=== PATIENT | female | born 1965 | race Caucasian/White ===

== ENCOUNTER 2019-11-18 07:28 | Outpatient (REF) | payer BC, SELFPAY ==
[2019-11-19 09:07] LABS: Follicle Stimulating Hormone 8.7 mIU/mL
== END 2019-11-18 07:29 | disposition home or self-care (01) ==
LOC: HO.MANLDS 07:28
PROVIDERS: PCP Physician Assistant; Visit Provider Physician Assistant
DX: N95.1 Menopausal and female climacteric states (principal)
CPT/HCPCS: 83001

== ENCOUNTER 2020-08-05 15:52 | Outpatient (REF) | payer BC, SELFPAY ==
[2020-08-05 17:56] LABS: MANUAL DIFF FLAG NO
[2020-08-05 17:57] LABS: Basophils Percent Auto 0.5 % (0-2); Eosinophils Absolute Auto 0.2 X10*3/uL (0.0-0.4); Hematocrit 34.8 % (37-47); Hemoglobin 10.6 g/dl (12.0-16.0); Imm Gran Abs Auto 0.02 X10*3/uL (0.00-0.03); Imm Gran Pct Auto 0.3 % (0.0-0.4); Lymphocytes Absolute Auto 1.3 X10*3/uL (1.2-4.9); Lymphocytes Percent Auto 21.4 % (20-40); Mean Corpuscular HGB Conc 30.5 g/dl (31.0-35.0); Mean Corpuscular Hemoglobin 22.2 pg (27.0-33.0); Mean Corpuscular Volume 72.8 fL (80-98); Monocytes Absolute Auto 0.5 X10*3/uL (0.1-1.2); Monocytes Percent Auto 7.7 % (2-11); Neutrophils Percent Auto 67.1 % (45-73); Platelet Count 260 X10*3/uL (160-400); Red Blood Count 4.78 X10*6/uL (4.20-5.50); Red Cell Distribution Width 18.3 % (11.0-16.0)
[2020-08-05 18:33] LABS: Alanine Aminotransferase 12 U/L (0-31); Alkaline Phosphatase 84 U/L (39-117); Anion Gap 13 (12-20); Aspartate Amino Transferase 13 U/L (5-31); Bilirubin Total < 0.2 mg/dL (0.0-1.0); Blood Urea Nitrogen 16 mg/dL (9-16); Calcium 9.1 mg/dL (8.4-10.2); Carbon Dioxide 25 mmol/L (22-29); Chloride 107 mmol/L (96-108); Estimated Glomerular Filt Rate > 60; Glucose Random 101 mg/dL (60-115); Iron 28 mcg/dL (30-160); Percent Iron Saturation 6 % (15-50); Sodium 141 mmol/L (135-145); Total Iron Binding Capacity 453 mcg/dL (228-428); Total Protein 6.5 g/dL (6.5-8.0); Unsaturated Iron Binding 425 ug/dL
[2020-08-05 18:47] LABS: Ferritin 6 ng/mL (10-250); Free T4 (Free Thyroxine) 0.88 ng/dL (0.71-1.85); Thyroid Stimulating Hormone 0.88 uIU/mL (0.32-4.0); Vitamin D 25-OH Total 25.8 ng/mL (>30)
== END 2020-08-05 15:53 | disposition home or self-care (01) ==
LOC: HO.MANLDS 15:52
PROVIDERS: PCP Internal Medicine; Visit Provider Internal Medicine
DX: R53.83 Other fatigue (principal)
CPT/HCPCS: 36415; 80053; 82306; 82728; 83540; 84439; 84443; 85025

== ENCOUNTER 2021-01-17 15:05 | Outpatient (REF) | payer BC, SELFPAY ==
[2021-01-17 18:52] LABS: Iron 46 mcg/dL (30-160); Percent Iron Saturation 10 % (15-50); Total Iron Binding Capacity 469 mcg/dL (228-428); Unsaturated Iron Binding 423 ug/dL
[2021-01-17 19:17] LABS: Ferritin 13 ng/mL (10-250); Free T4 (Free Thyroxine) 0.95 ng/dL (0.71-1.85); Thyroid Stimulating Hormone 0.95 uIU/mL (0.32-4.0)
== END 2021-01-17 15:06 | disposition home or self-care (01) ==
LOC: HO.MANLDS 15:05
PROVIDERS: PCP Physician Assistant; Visit Provider Physician Assistant
DX: R53.83 Other fatigue (principal)
CPT/HCPCS: 36415; 82728; 83540; 84439; 84443

== ENCOUNTER 2021-08-16 11:14 | Outpatient (REF) | payer BC, SELFPAY ==
[2021-08-16 13:24] LABS: MANUAL DIFF FLAG NO
[2021-08-16 13:28] LABS: Basophils Percent Auto 0.6 % (0-2); Eosinophils Absolute Auto 0.2 X10*3/uL (0.0-0.4); Eosinophils Percent Auto 3.3 % (0-4); Hematocrit 38.4 % (37.0-47.0); Imm Gran Abs Auto 0.01 X10*3/uL (0.00-0.03); Imm Gran Pct Auto 0.2 % (0.0-0.4); Lymphocytes Absolute Auto 1.3 X10*3/uL (1.2-4.9); Lymphocytes Percent Auto 27.3 % (20-40); Mean Corpuscular HGB Conc 31.3 g/dl (31.0-35.0); Mean Corpuscular Hemoglobin 24.9 pg (27.0-33.0); Mean Corpuscular Volume 79.7 fL (80.0-98.0); Mean Platelet Volume 11.9 fL (9.4-12.3); Monocytes Absolute Auto 0.6 X10*3/uL (0.1-1.2); Monocytes Percent Auto 11.7 % (2-11); Neutrophils Absolute Auto 2.8 x10*3/uL (2.0-8.3); Neutrophils Percent Auto 56.9 % (45-73); Platelet Count 218 X10*3/uL (160-400); Red Blood Count 4.82 X10*6/uL (4.20-5.50); Red Cell Distribution Width 14.9 % (11.0-16.0); White Blood Count 4.9 X10*3/uL (4.8-10.8)
[2021-08-16 13:52] LABS: B Type Natriuretic Peptide 30 pg/mL (<100)
[2021-08-16 14:07] LABS: Erythrocyte Sedimentation Rate 5 MM/HR (0-20)
[2021-08-16 14:14] LABS: Estimated Average Glucose 108 mg/dL; Hemoglobin A1c % 5.4 %
[2021-08-16 14:28] LABS: Alanine Aminotransferase 14 U/L (0-31); Albumin Level 4.1 g/dL (3.5-5.0); Alkaline Phosphatase 70 U/L (39-117); Anion Gap 8 (12-20); Aspartate Amino Transferase 14 U/L (5-31); Bilirubin Total 0.3 mg/dL (0.0-1.0); Blood Urea Nitrogen 18 mg/dL (9-16); C Reactive Protein 0.86 mg/dL (< or = 0.50); Calcium 9.1 mg/dL (8.4-10.2); Carbon Dioxide 27 mmol/L (22-29); Chloride 106 mmol/L (96-108); Cholesterol 231 mg/dL; Estimated Glomerular Filt Rate > 60; Glucose Random 78 mg/dL (60-115); HDL Cholesterol 55 mg/dL; LDL Cholesterol Calculated 115 mg/dl; Potassium 4.4 mmol/L (3.3-5.1); Sodium 137 mmol/L (135-145); Total Protein 6.6 g/dL (6.5-8.0); Triglycerides 308 mg/dL
[2021-08-16 14:36] LABS: Free T4 (Free Thyroxine) 0.86 ng/dL (0.71-1.85); Thyroid Stimulating Hormone 1.09 uIU/mL (0.32-4.0); Vitamin D 25-OH Total 22.8 ng/mL (>30)
[2021-08-17 21:21] LABS: Lyme Abs Screen <0.90 index
== END 2021-08-16 11:15 | disposition home or self-care (01) ==
LOC: HO.MANLDS 11:14
PROVIDERS: Visit Provider Physician Assistant
DX: R53.83 Other fatigue (principal); R60.0 Localized edema; E78.2 Mixed hyperlipidemia
CPT/HCPCS: 36415; 80053; 80061; 82306; 83036; 83880; 84439; 84443; 85025; 85652; 86140; 86617; 86618

== ENCOUNTER → 2021-08-16 15:49 | Outpatient (REF) | payer BC, SELFPAY ==
--- NOTE | 2021-08-16 15:58 | CA_ITS ---
Transthoracic Echocardiogram Patient (Last, First, Middle): Lisha Roman, Gender: Female Date of : 1965 Age: 56 Procedure Date: 08/16/2021 Procedure Type: Transthoracic Echocardiogram Location: OP Height: 152.4 cm Weight: 122.47 kg BSA: 2.12 m2 Heart Rate: bpm BP: 128 / 80 mmHg Disaster Director: MAITE Referring MD: Razia GRIFFIN Symptoms: R60.0 EDEMA Study Quality: Adequate ECG Rhythm: Sinus Conclusions: - 1. Normal LV systolic function with impaired relaxation filling pattern 2. Normal cardiac valvular Doppler 3. Normal RV systolic pressure 4. No pericardial effusion Findings Left Ventricle Normal left ventricular size, thickness, and systolic function. The visually estimated ejection fraction is between 55-60%. Spectral Doppler is indicative of an impaired relaxation filling pattern. E/E prime ratio is between 8 and 15 consistent with indeterminate filling pressures. Right Ventricle Normal right ventricular cavity size and systolic function. Atria Both atria are normal in size. Interatrial shunt cannot be excluded. Aortic Valve Normal aortic valve structure and function. There is no aortic valve stenosis. There is no aortic valve regurgitation. Mitral Valve Normal mitral valve structure and function. There is trace mitral valve regurgitation. There is no mitral valve stenosis. Pulmonic Valve The pulmonic valve was not well visualized. Tricuspid Valve Likely normal tricuspid valve structure and function. There is trace tricuspid valve regurgitation. The right ventricular systolic pressure is normal. The right ventricular systolic pressure is 25 mmHg. Normal right atrial pressure. There is no evidence of pulmonary hypertension. Great Vessels All visible segments of the aorta are normal in size. The pulmonary artery was not well visualized. Venous The inferior vena cava is normal in size and collapses greater than 50% with inspiration. Pericardium/Pleural There is no evidence of pericardial effusion. Prior Study Comparison No prior study available for comparison. Measurements 2D Linear Measurements IVSd: 0.94 0.6-0.9/0.6-1.0 cm LVIDd: 4.57 3.9-5.3/4.2-5.9 cm LVIDd Index: 2.16 2.4-3.2/2.2-3.1 cm/m2 LVIDs: 3.15 2.0-3.6 cm LVPWd: 0.88 0.7-1.1 cm Ao Root: 3.50 2.1-3.5 cm LA Diam: 4.10 2.7-3.8/3.0-4.0 cm LAIDs Index: 1.93 1.5-2.3 cm/m2 LV Mass: 240.90 67-162/88-224 g LV Mass Index: 113.63 43-95/49-115 g/m2 LVOT Diam: 2.10 3.0+(-)1.3 cm 2D Systolic Function EF 4C: 58.70 >55% EF 2C: 54.50 >55% EF BiP: 56.40 >55% Mitral Valve MV Pk E: 0.81 MV PK A: 0.85 MV Decel Time: 180.00 E/A: 1.00 E'Lateral: 9.90 E'Medial: 7.62 E/E' Med: 10.70 E/E' Lat: 8.20 PHT: 53.00 MVA PHT: 4.15 Decel Bledsoe: 4.52 Aortic Valve AoV Pk Hung: 1.20 AoV Mn Hung: 0.78 AoV VTI: 0.30 AoV Pk Grad: 6.00 Aov Mn Grad: 3.00 IAN Cont.VTI: 2.71 LVOT LVOT Pk Hung: 0.94 LVOT Mn Hung: 0.60 LVOT VTI: 0.24 LVOT Pk Grad: 4.00 LVOT Mn Grad: 2.00 LVOT Diam: 2.10 LVOT Area: 3.46 Diastolic Function MV Pk E: 0.81 MV Pk A: 0.85 E/A: 1.00 E'Medial: 7.62 E/E' Med: 10.70 E' Laterial: 9.90 E/E' Lat: 8.20 Right Ventricle TAPSE (mm): 34.00 Tricuspid Valve TR Pk Hung: 2.36 TR Pk Grad: 22.00 RA Press: 3.00 RVSP: 25.00 Great Vessels Aorta Ao Root-2D: 3.50 2.0-3.7 cm Ao Asc: 3.20 2.1-3.4 cm Pulmonary Valve PV Pk Hung: 0.98 Peak PV Grad: 4.00 Updated in Other Vendor System with Status of Final Jermaine Brewer MD electronically signed on 08/17/2021 8:25:41 AM with status of Final
== END ==
LOC: HO.CARD 15:49
PROVIDERS: PCP Internal Medicine; Visit Provider Physician Assistant
DX: R60.0 Localized edema (principal)
CPT/HCPCS: 93306

== ENCOUNTER 2022-03-06 11:33 | Outpatient (REF) | payer BC, SELFPAY ==
[2022-03-06 15:34] LABS: Insulin 9 uU/mL (2-29)
[2022-03-07 07:03] LABS: C Peptide 2.72 ng/mL (0.80-3.85); DHEA Sulfate 63 mcg/dL (5-167); Lutenizing Hormone 14.1 mIU/mL; Prolactin 3.7 ng/mL
[2022-03-10 19:29] LABS: Progesterone <0.1 ng/mL
[2022-03-10 22:48] LABS: Estradiol Free 0.51 pg/mL; Estradiol, Ultrasensitive 31 pg/mL
[2022-03-11 13:14] LABS: Testosterone, Total 28 ng/dL (2-45)
== END 2022-03-06 11:34 | disposition home or self-care (01) ==
LOC: HO.MANLDS 11:33
PROVIDERS: Visit Provider Physician Assistant
DX: E88.81 Metabolic syndrome and other insulin resistance (principal); N95.1 Menopausal and female climacteric states
CPT/HCPCS: 36415; 82627; 82670; 82681; 83001; 83002; 83525; 84144; 84146; 84403; 84681

== ENCOUNTER 2022-10-03 11:59 | Outpatient (REF) | payer BC, SELFPAY ==
[2022-10-03 17:46] LABS: C Reactive Protein 0.88 mg/dL (< or = 0.50)
[2022-10-03 18:24] LABS: Erythrocyte Sedimentation Rate 2 MM/HR (0-20)
[2022-10-04 21:04] LABS: Lyme Abs Screen <0.90 index
[2022-10-08 12:34] LABS: Anti Nuclear Antibody Screen POSITIVE (NEGATIVE)
== END 2022-10-03 12:00 | disposition home or self-care (01) ==
LOC: HO.MANLDS 11:59
PROVIDERS: Visit Provider Physician Assistant
DX: M79.89 Other specified soft tissue disorders (principal)
CPT/HCPCS: 85652; 86038; 86039; 86140; 86617; 86618; 86666

== ENCOUNTER 2023-08-13 15:45 | Outpatient (REF) | payer BC, SELFPAY ==
[2023-08-13 18:11] LABS: MANUAL DIFF FLAG NO
[2023-08-13 18:30] LABS: Basophils Percent Auto 0.5 % (0-2); Eosinophils Absolute Auto 0.2 X10*3/uL (0.0-0.4); Eosinophils Percent Auto 2.8 % (0-4); Hematocrit 40.3 % (37.0-47.0); Hemoglobin 13.2 g/dl (12.0-16.0); Imm Gran Abs Auto 0.03 X10*3/uL (0.00-0.03); Imm Gran Pct Auto 0.5 % (0.0-0.4); Lymphocytes Absolute Auto 1.4 X10*3/uL (1.2-4.9); Lymphocytes Percent Auto 24.2 % (20-40); Mean Corpuscular HGB Conc 32.8 g/dl (31.0-35.0); Mean Corpuscular Hemoglobin 26.6 pg (27.0-33.0); Mean Corpuscular Volume 81.1 fL (80.0-98.0); Mean Platelet Volume 11.6 fL (9.4-12.3); Monocytes Absolute Auto 0.5 X10*3/uL (0.1-1.2); Monocytes Percent Auto 8.8 % (2-11); Neutrophils Absolute Auto 3.6 x10*3/uL (2.0-8.3); Neutrophils Percent Auto 63.2 % (45-73); Platelet Count 241 X10*3/uL (160-400); Red Blood Count 4.97 X10*6/uL (4.20-5.50); Red Cell Distribution Width 14.9 % (11.0-16.0); White Blood Count 5.7 X10*3/uL (4.8-10.8)
[2023-08-13 18:45] LABS: Free T4 (Free Thyroxine) 0.88 ng/dL (0.71-1.85); Insulin 39 uU/mL (2-29); Thyroid Stimulating Hormone 1.25 uIU/mL (0.32-4.0)
[2023-08-19 23:08] LABS: Testosterone, Total 28 ng/dL (2-45)
== END 2023-08-13 15:46 | disposition home or self-care (01) ==
LOC: HO.MANLDS 15:45
PROVIDERS: Visit Provider Physician Assistant
DX: E88.818 Other insulin resistance (principal); L68.0 Hirsutism
CPT/HCPCS: 36415; 83525; 84402; 84403; 84439; 84443; 85025

== ENCOUNTER 2023-09-23 12:04 | Outpatient (REF) | payer BC, SELFPAY ==
[2023-09-23 17:48] LABS: Lymphocytes Absolute Auto 1.1 X10*3/uL (1.2-4.9); MANUAL DIFF FLAG SCAN; Mean Corpuscular Volume 82.2 fL (80.0-98.0); Monocytes Absolute Auto 0.3 X10*3/uL (0.1-1.2); SCAN SMEAR FLAG 1
[2023-09-23 17:49] LABS: PLT ABN DIST 1
[2023-09-23 17:50] LABS: Basophils Percent Auto 0.9 % (0-2); Eosinophils Absolute Auto 0.1 X10*3/uL (0.0-0.4); Eosinophils Percent Auto 2.9 % (0-4); Imm Gran Abs Auto 0.02 X10*3/uL (0.00-0.03); Imm Gran Pct Auto 0.4 % (0.0-0.4); Lymphocytes Percent Auto 23.8 % (20-40); Mean Corpuscular HGB Conc 31.8 g/dl (31.0-35.0); Mean Corpuscular Hemoglobin 26.2 pg (27.0-33.0); Mean Platelet Volume 12.2 fL (9.4-12.3); Platelet Count 232 X10*3/uL (160-400); Red Blood Count 5.35 X10*6/uL (4.20-5.50); Red Cell Distribution Width 14.4 % (11.0-16.0); White Blood Count 4.5 X10*3/uL (4.8-10.8)
[2023-09-23 18:08] LABS: SLIDE REVIEW VERIFIED
[2023-09-23 18:22] LABS: Alanine Aminotransferase 18 U/L (0-31); Albumin Level 4.2 g/dL (3.5-5.0); Alkaline Phosphatase 86 U/L (39-117); Anion Gap 14 (12-20); Aspartate Amino Transferase 17 U/L (5-31); Bilirubin Total 0.3 mg/dL (0.0-1.0); Blood Urea Nitrogen 16 mg/dL (9-16); Calcium 9.2 mg/dL (8.4-10.2); Carbon Dioxide 23 mmol/L (22-29); Chloride 107 mmol/L (96-108); Estimated Glomerular Filt Rate > 60; Glucose Random 138 mg/dL (60-115); Sodium 140 mmol/L (135-145)
[2023-09-24 17:39] LABS: Lyme Abs Screen <0.90 index
[2023-09-28 10:08] LABS: A phagocytophilum IgG <1:64 (<1:64); A phagocytophilum IgM <1:20 (<1:20)
== END 2023-09-23 12:05 | disposition home or self-care (01) ==
LOC: HO.MANLDS 12:04
PROVIDERS: Visit Provider Physician Assistant
DX: M25.561 Pain in right knee (principal)
CPT/HCPCS: 36415; 80053; 84550; 85025; 86617; 86618; 86666

== ENCOUNTER 2024-04-17 10:34 | Outpatient (REF) | payer BC, SELFPAY ==
--- OUTSIDE RECORDS SUMMARY | 2024-04-17 11:56 | XMS_ITS | Continuity of Care Document ---
Author Organization [facility], [facility] Address [address] [place] [address] Assessment No assessment recorded. Plan of Treatment Reminders Order Date Submit Date Provider Last Modified By Organization Details Last Modified Time Details Appointments FOLLOW UP 15 2024 10:00A GABY DINERO Not available Not available Not available ANNUAL EXAM 2024 01:30P GABY DINERO Not available Not available Not available Lab CMP, serum or plasma 2024 025 [facility], [address] [place] [address], [id number], 04/17/2024 10:18:38 hemoglobi n A1c, QN, blood 2024 025 [facility], [address] [place] [address], [id number], 04/17/2024 10:18:38 CBC w/ auto diff 2024 025 [facility], [address] [place] [address], [id number], 04/17/2024 10:18:38 amylase + lipase, serum 2024 025 [facility], [address] [place] [address], [id number], 04/17/2024 10:18:38 lh + FSH, serum 2024 025 [facility], [address] [place] [address], [id number], 04/17/2024 10:18:38 progester one, serum 2024 025 [facility], [address] [place] [address], [id number], 04/17/2024 10:18:38 estradiol , serum 2024 025 [facility], [address] [place] [address], [id number], 04/17/2024 10:18:38 lipid panel, blood 2024 025 [facility], [address] [place] [address], [id number], 04/17/2024 10:18:38 TSH + free T4, serum 2024 025 [facility], [address] [place] [address], [id number], 04/17/2024 10:18:38 Referral None recorded. Procedures None recorded. Surgeries None recorded. Imaging None recorded. Medication Orders paroxetin e 10 mg tablet 2024 025 [facility] #[id number], [address] [place], [address], 04/17/2024 10:17:20 Patient TargetsNo targets recorded. Patient InstructionsNo instructions recorded. Reason for Referral None Reported. Problems Name Problem SNOMED Code Status Onset Date Resolution Date Notes Provider Name and Address Organization Details Recorded Time Migraine 71584733 Active 2017 Lakeshia Garcia NP, S [address] [place] [address], [address], [facility] 8 16:28:42 Asthma 966082133 Active 2019 GABY RIVERA [address] [place], [address], [facility] 0 16:07:22 COVID-19 607984967 Active 2019 0 Brenda Lopez [facility] 0 09:42:40 Pulmonary embolism 12151143 Active 2019 GABY RIVERA [address] [place], [address], [facility] 0 12:30:54 Deep venous thrombosi s of lower extremity 817508224 Active 2020 GABY RIVERA [address] [place], [address], [facility] 1 13:43:49 Edema of lower extremity 045015944 Active 2021 GABY RIVERA [address] [place] [address], [address], [facility] 2 11:05:34 Cough 28846534 Active 2021 GABY RIVERA [address] [place], [address], [facility] 2 11:05:41 Fatigue 87148782 Active 2021 GABY RIVERA [address] [place] [address], [address], [facility] 2 11:07:20 Hyperlipi demia 71041397 Active 2021 GABY RIVERA [address] [place] [address], [address], [facility] 2 11:08:59 Decreased renal function 45882252 Active 2021 GABY RIVERA [address] [place] [address], [address], [facility] 2 09:16:57 Obese 149653719 Active 2021 GABY RIVERA [address] [place] [address], [address], [facility] 2 16:38:38 Insulin resistanc e 537544856 Active 2022 GABY RIVERA [address] [place], [address], [facility] 3 14:32:13 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 GABY RIVERA [address] [place], [address], [facility] 3 14:32:31 Deep venous thrombosi s of lower extremity 504125602 Active 2022 GABY RIVERA [address] [place], [address], [facility] 3 09:45:00 Periphera l venous insuffici ency 30414230 Active 2022 GABY RIVERA [address] [place], [address], [facility] 3 09:45:47 Periphera l vascular disease 613968777 Active 2022 GABY RIVERA [address] [place], [address], [facility] 3 09:48:00 Swelling of left foot 641058985 Active 2022 GABY RIVERA [address] [place], [address], [facility] 3 15:57:38 Exacerbat ion of intermitt ent asthma 541537234 Active 2022 GABY RIVERA [address] [place], [address], [facility] 3 13:58:25 Insomnia 480382669 Active 2022 GABY RIVERA [address] [place], [address], [facility] 3 13:59:25 Anxiety 75171167 Active 2022 GABY RIVERA [address] [place] [address], [address], [facility] 3 12:14:37 Morbid obesity 828951191 Active 2022 GABY RIVERA [address] [place] [address], [address], [facility] 3 12:16:13 Female hirsutism 71737297 Active 2023 GABY RIVERA [address] [place] [address], [address], [facility] 4 16:44:21 Achilles tendiniti s 46228205 Active 2023 GABY RIVERA [address] [place] [address], [address], [facility] 4 17:02:00 Pain of right knee joint 422900043777 100 Active 2023 GABY RIVERA [address] [place] [address], [address], [facility] 4 11:48:13 Obesity 506613828 Active 2023 GABY RIVERA [address] [place] [address], [address], [facility] 4 11:56:54 Acute pain of joint of knee 633961705958 104 Active 2023 GABY RIVERA [address] [place] [address], [address], [facility] 4 09:22:24 Acute tear of medial meniscus of right knee 897984904335 35997 Active 2023 GABY RIVERA [address] [place] [address], [address], [facility] 4 15:15:44 Acute bronchiti s 10416290 Active 2023 GABY RIVERA [address] [place] [address], [address], [facility] 4 09:35:10 Impaired fasting glycemia 613824927 Active 2024 GABY RIVERA [address] [place], [address], [facility] 5 10:06:08 Increased thirst 053336549 Active 2024 GABY RIVERA [address] [place], [address], [facility] 5 10:06:30 Menopause Active 2024 GABY RIVERA [address] [place], [address], [facility] 5 10:09:07 Problem Notes None recorded. Medical Equipment None Reported. Allergies Allergen ID Allergen Name Allergen Category Reaction Reaction Severity Criticality Documentation Date Start Date Code Code System Note Provider Name and Address Organization Details Recorded Time 2401 morphine medicatio n itching mild Not available 11/20/2017 7052 RxNorm Lakeshia Garcia NP, S [address] [place], [address], [facility] 8 16:16:06 Medications Name Sig Start Date Stop Date Status Note LastModified by Organization Details LastModified Time Prescripti on - Prior Authorizat ion Request active Not Available Not Available Not Available cyclobenza nelda 10 mg tablet Take 1 tablet 3 times a day by oral route for 15 days. 08/05 completed Not Available Not Available Not Available amoxicilli n 500 mg capsule Take 1 capsule every 8 hours by oral route. 10/07 completed Not Available Not Available Not Available furosemide 40 mg tablet TAKE 1 TABLET BY MOUTH EVERY DAY active Not Available Not Available No t Available prednisone 10 mg tablet TAKE 5 TABLETS BY MOUTH X 2 DAYS, 4 TABS X 2 DAYS, 3 TABS X 2 DAYS, 2 TABS X 2 DAYS, 1 TAB X 2 DAYS 04/17 completed Not Available Not Available Not Available paroxetine 10 mg tablet Take 1 tablet every day by oral route as directed for 30 days. 2024 active Not Available Not Available Not Avai lable azithromyc in 250 mg tablet TAKE 2 TABLETS BY MOUTH TODAY, THEN TAKE 1 TABLET DAILY FOR 4 DAYS DIRECTED 04/17 completed Not Available Not Available Not Available benzonatat e 200 mg capsule TAKE 1 CAPSULE BY MOUTH THREE TIMES A DAY NEEDED FOR 14 DAYS 04/17 completed Not Available Not Available Not Available sumatripta n 100 mg tablet TK 1 T PO 1 TIME PRN active Not Available Not Available No t Available meloxicam 15 mg tablet TAKE 1 TABLET EVERY DAY BY ORAL ROUTE WITH MEAL(S) FOR 30 DAYS. active Not Available Not Available No t Available ondansetro n HCl 4 mg tablet 08/05 completed Not Available Not Available Not Available phentermin e 15 mg capsule TAKE 1 CAPSULE BY MOUTH EVERY DAY 08/06 completed Not Available Not Available Not Available sumatripta n 50 mg tablet Take 1 tablet every day by oral route as needed. 10/20 completed Not Available Not Available Not Available ciprofloxa vasile 500 mg tablet TAKE 1 TABLET BY MOUTH EVERY 12 HOURS FOR 7 DAYS 01/16 completed Not Available Not Available Not Available tramadol 50 mg tablet TAKE 1 TABLET BY MOUTH EVERY 6 HOURS NEEDED FOR 7 DAYS active Not Available Not Available No t Available meclizine 25 mg tablet prn for dizzines s/migrai ne 2019 active Not Available Not Available Not Avai lable dexamethas one 4 mg tablet TK 1 AND 1/2 TS PO D FOR 5 DAYS 08/05 completed Not Available Not Available Not Available triamteren e 37.5 mg-hydroch lorothiazi de 25 mg tablet TAKE 1 TABLET BY MOUTH EVERY DAY 08/30 completed Not Available Not Available Not Available diclofenac sodium 75 mg tablet,del ayed release TAKE 1 TABLET BY MOUTH TWICE A DAY WITH MEALS FOR 30 DAYS 01/16 completed Not Available Not Available Not Available codeine 10 mg-guaifen esin 100 mg/5 mL oral liquid TAKE 10 MILLILIT ERS BY MOUTH EVERY 4 HOURS NEEDED 04/17 completed Not Available Not Available Not Available furosemide 20 mg tablet TAKE 1 TABLET BY MOUTH EVERY DAY 05/16 completed Not Available Not Available Not Available levofloxac in 500 mg tablet TAKE 1 TABLET BY MOUTH EVERY 24 HOURS FOR 7 DAYS AT [facility] 05/16 completed Not Available Not Available Not Available methylpred nisolone 4 mg tablets in a dose pack TAKE 6 TABLETS ON DAY 1 DIRECTED ON PACKAGE AND DECREASE BY 1 TAB EACH DAY FOR A TOTAL OF 6 DAYS 04/17 completed Not Available Not Available Not Available hydrocodon e 10 mg-chlorph eniramine 8 mg/5 mL oral susp extend.rel 12hr TAKE 5 ML BY MOUTH EVERY 12 HOURS FOR 7 DAYS 01/16 completed Not Available Not Available Not Available albuterol sulfate HFA 90 mcg/actuat ion aerosol inhaler TAKE 2 PUFFS BY MOUTH EVERY 4 HOURS NEEDED 2023 active Not Available Not Available Not Avai lable Tri-Tiffanie 0.01 %-4 %-0.05 % topical cream Apply thin film to affected areas of face at nighttim e for up to 12 weeks at a time 05/16 completed Not Available Not Available Not Available bupropion HCl XL 150 mg 24 hr tablet, extended release TAKE 1 TABLET BY MOUTH EVERY DAY FOR 30 DAYS active Not Available Not Available No t Available Vitamin D3 2000 units active Not Available Not Available No t Available peg 3350-elect rolytes 236 gram-22.74 gram-6.74 gram-5.86 gram solution MIX AND USE DIRECTED FOR COLONOSC OPY 02/21 completed Not Available Not Available Not Available Xarelto 15 mg tablet 08/05 completed for 21 days BID, then switch over to 20 mg qd Not Available Not Available Not Available Xarelto 20 mg tablet Take 1 tablet every day by oral route for 30 days. 01/17 completed Not Available Not Available Not Available Breo Ellipta 100 mcg-25 mcg/dose powder for inhalation 01/16 completed Not Available Not Available Not Available Fluzone Quad (PF) 60 mcg (15 mcg x 4)/0.5 mL IM syringe ADM 0.5ML IM UTD 08/05 completed Not Available Not Available Not Available Wegovy 0.25 mg/0.5 mL subcutaneo us pen injector INJECT 0.25 MG SUBCUTAN EOUSLY WEEKLY DIRECTED active Not Available Not Available No t Available Vitals Date Recorded Body height Body mass index (BMI) Body weight Heart rate Oxygen saturation Oxygen saturation in Arterial blood by Pulse oximetry Systolic blood pressure Diastolic blood pressure Provider Name and Address Organization Details Last Updated DateTime 5 152.4 cm 56.1 kg/m2 539785. 01 g 78 /min 96 % 96 % 118 mm[Hg] 70 mm[Hg] Lara Padgettmond [facility] 5 10:02:02 Social History Question Answer Notes LastModified by [employer] Details LastModified Time Tobacco Smoking Status Never Smoker Not Available [facility] 12/15/2019 03:36:24 What Is Your Level Of Alcohol Consumption? Occasional [id number] Information not available 12/15/2019 What Is Your Level Of Caffeine Consumption? Occasional 1 Cup Coffee Per Day [id number] Information not available 12/15/2019 What Was The Date Of Your Most Recent Tobacco Screening? 04/17/2024 [email or web address] Information not available 04/17/2024 Do You Or Have You Ever Used Any Other Forms Of Tobacco Or Nicotine? No [email or web address] Information not available 01/16/2023 Sex: Unknown Functional Status Question Answer Note LastModified by [employer] Details LastModified Time What is your exercise level? Occasional [id number] Information not available 12/15/2019 Mental Status None recorded. Family History Nothing Reported. Medical History No medical history recorded. Gynecological History Statement/Question Response Date of LMP 10/05/2018 Obstetrics History GPAL:G 0 P 0 0 0 0 Immunizations Vaccine Type Date Status Note Provider Nam e and Address Organization Details Recorded Time COVID-19, mRNA, LNP-S, PF, 30 mcg/0.3 mL dose 1 completed Leah marquez [facility] 08/02/2020 09:48:05 COVID-19, mRNA, LNP-S, PF, 30 mcg/0.3 mL dose 1 completed Leah marquez [facility] 08/02/2020 09:48:10 pneumococcal polysaccharide PPV23 0 completed Leah marquez [facility] 08/02/2020 09:48:23 Past Encounters Encounter ID Performer Location Encounter Start Date Encounter Closed Date Diagnosis/Indication Diagnosis SNOMED-CT Code Diagnosis ICD10 Code Diagnosis Note [id number] GABY RIVERA [facility] [address] [facility],[place] [address] 04/17/2024 09:53:13 04/17/2024 10:28:16 Impaired fasting glycemia 387999437 R73.01 set up with lab work Increased thirst 2656799 03 R63.1 set up with lab work Thyroid di sorder screening 361300348 Z13.29 would like it screened prior to starting injections Menopause 669850831 N95. 1 alt medication for menopausal symptoms Screening for cardiovascular system disease 622923338 Z13.6 needs recheck Morbid obesity 675175030 E66.01 wants to start her wegovy Deep venou s thrombosis of lower extremity 891527418 I82.412 resolved, caution with possible HRT Health Concerns Section Related Observation LastModified by Organization Detai ls LastModified Time None Recorded Concern Status LastModified by Organization Details LastModified Time None Recorded Payers Encounter Date Sequence Insurance Name Policy Number Policy Jean Covered Member ID Jean Member ID Guarantor Name 04/17/2024 1 [employer] [employer] [place] [id number] Lisha Roman [id number] Lisha Roman Notes Date Note Type Note Provider Name a nd Address Organization Details Recorded Time 5 text/html f/u medication check IFG: the patient needs recheck lab work before starting on the wegovy in case she does have diabetes, will switch to alt with the ozempic increased thirst: does have that concern, the pt has a sig family hx as well for the diabetes wants to have her pancreas screened prior to starting screen her thyroid levels as well prior to starting the wegovy screening cardio disease: needs recheck of her lipid DVT: trial paxil instead of HRT given risk involved with estrogen therapy in someone who has a clotting problem just baseline labs prior to new meds to avoid any complications, contraindications GABY RIVERA [address] [facility], [place], [address], [facility] 04/17/2024 10:28:15 OBGyn Episode No OBEpisode recorded.
--- OUTSIDE RECORDS SUMMARY | 2024-04-17 11:56 | XMS_ITS | Data Portability ---
Author Organization [facility] Service Address [address] [place] [address] Assessment Encounter Date Assessment Date Assessment LastModified by Organization Details LastModified Time 01/01/2023 01/01/2023 Patient agreed and verbally consents to this audio and video Telehealth appt via a secure platform [email or web address] Not available 01/01/2023 13:57:52 Plan of Treatment Reminders Order Date Submit Date Provider Last Modified By Organization Details Last Modified Time Details Appointments FOLLOW UP 15 2024 10:00A M GABY RIVERA Not available Not available Not available ANNUAL EXAM 2024 01:30P M GABY RIVERA Not available Not available Not available Lab CMP, serum or plasma 2024 025 [facility], [address] [place] [address], [id number], 04/17/2024 10:18:38 hemoglobi n A1c, QN, blood 2024 025 [facility], [address] [place] [address], 537[address], 04/17/2024 10:18:38 CBC w/ auto diff 2024 025 [facility], [address] [place] [address], 14[address], 04/17/2024 10:18:38 amylase + lipase, serum 2024 025 [facility], [address] [place] [address], [address], 04/17/2024 10:18:38 lh + FSH, serum 2024 025 [facility], [address] [place] [address], 339[address], 04/17/2024 10:18:38 progester one, serum 2024 025 [facility], [address] [place] [address], 159[address], 04/17/2024 10:18:38 estradiol , serum 2024 025 [facility], [address] [place] [address], [address], 04/17/2024 10:18:38 lipid panel, blood 2024 025 [facility], [address] [place] [address], [address], 04/17/2024 10:18:38 TSH + free T4, serum 2024 025 [facility], [address] [place] [address], [address], 04/17/2024 10:18:38 lyme disease igg+igm, serum, reflex western blot 2023 024 [facility], [address] [place] [address], [address], 09/25/2023 11:24:33 anaplasma phagocyto philum (hga/hge) igg+igm Ab, serum 2023 024 [facility], [address] [place] [address], [id number], 09/30/2023 11:28:20 uric acid, serum or plasma 2023 [facility], [address] [place] [address], 02640, 09/23/2023 11:57:53 CMP, serum or plasma 2023 [facility], [address] [place] [address], 18[address], 09/24/2023 11:33:18 CBC w/ auto diff 2023 [facility], [address] [place] [address], 62[address], 09/24/2023 11:33:18 testoster one, free + total, serum 2023 [facility], [address] [place] [address], 045[address], 08/20/2023 11:34:26 dhea-sulf ate, serum 2023 [facility], [address] [place] [address], 96938, 08/07/2023 16:47:43 lh + FSH, serum 2023 024 [facility], [address] [place] [address], 22834, 08/07/2023 16:47:43 prolactin , serum 2023 024 [facility], [address] [place] [address], 08867, 08/07/2023 16:47:43 estradiol , serum 2023 024 [facility], [address] [place] [address], 35582, 08/07/2023 16:47:43 TSH + free T4, serum 2023 024 [facility], [address] [place] [address], 63284, 08/14/2023 11:28:48 thyroid peroxidas e (tpo) Ab, serum 2023 024 [facility], [address] [place] [address], 57764, 08/07/2023 16:47:43 insulin, serum 2023 024 [facility], [address] [place] [address], 02986, 08/07/2023 16:47:44 CMP, serum or plasma 2023 024 [facility], [address] [place] [address], 15153, 08/07/2023 16:47:43 CBC w/ auto diff 2023 024 [facility], [address] [place] [address], 99640, 08/07/2023 16:47:44 lipid panel, serum 2023 024 [facility], [address] [place] [address], 10476, 08/07/2023 16:47:43 CMP, serum or plasma 2022 023 [facility], [address] [place] [address], 92135, 01/16/2023 12:23:17 CBC w/ auto diff 2022 023 [facility], [address] [place] [address], 33764, 01/16/2023 12:23:17 lipid panel, blood 2022 023 [facility], [address] [place] [address], 02196, 01/16/2023 12:23:17 TSH + free T4, serum 2022 023 [facility], [address] [place] [address], 59669, 01/16/2023 12:23:17 hemoglobi n A1c, QN, blood 2022 023 [facility], [address] [place] [address], 81450, 01/16/2023 12:23:17 vitamin D, 25-hydrox y, total, serum 2022 023 [facility], [address] [place] [address], 46[address], 01/16/2023 12:23:17 Referral None recorded. Procedures None recorded. Surgeries None recorded. Imaging XR, knee, 3 view 2023 024 [facility], [address] [place], [address], 09/24/2023 16:18:20 Medication Orders paroxetin e 10 mg tablet 2024 025 [facility]armacy #2024, [address] [place], [address], 04/17/2024 10:17:20 meloxicam 15 mg tablet 2023 024 [facility]acy #2024, [address] [place], [address], 08/07/2023 17:02:21 Medrol (Macho) 4 mg tablets in a dose pack 2023 024 [facility]/Pharmacy #5, [address] [place], [address], 04/17/2024 10:03:37 codeine 10 mg-guaife nesin 100 mg/5 mL oral liquid 2023 024 [facility] [address] [place] [address], [address], 04/17/2024 10:04:38 bupropion HCl XL 150 mg 24 hr tablet, extended release 2023 024 [facility] [address] [place] [address], [address], 04/17/2024 10:09:27 phentermi ne 15 mg capsule 2022 023 [facility] [address] [place] [address], [address], 08/07/2023 16:48:05 albuterol sulfate HFA 90 mcg/actua tion aerosol inhaler 2022 023 [facility] [address] [place] [address], [address], 01/01/2023 13:58:05 ciproflox acin 500 mg tablet 2022 023 [address] [facility] [address] [address] [address] [place] [address], [address], 01/16/2023 11:29:54 hydrocodo ne 10 mg-chlorp heniramin e 8 mg/5 mL oral susp extend.re l 12hr 2022 023 [address] [facility] [address] [address] [address] [place] [address], [address], 01/16/2023 11:29:47 Patient TargetsNo targets recorded. Patient InstructionsNo instructions recorded. Reason for Referral None Reported. Results Created Date Observation Date Name Description Value Unit Range Abnormal Flag Note LastModifiedBy Organization Detail LastModifiedTime 09/24/19 24 09/23/2023 XR, knee, 3 view No observ ation record ed. [facility] [address] [facility], [place], [address], 09/25/2023 10:13:53 09/30/19 24 09/23/2023 XR, knee, 3 view No observ ation record ed. [facility] [address] [facility] [address], [place], [address], 09/30/2023 10:40:27 10/22/19 24 10/21/2023 MRI, knee, w/o contr ast No observ ation record ed. [facility] [address] [facility] [address], [place], [address], 10/22/2023 15:14:41 Result Notes None recorded. Problems Name Problem SNOMED Code Status Onset Date Resolution Date Notes Provider Name and Address Organization Details Recorded Time Migraine 98693032 Active 2017 Lakeshia Garcia NP, S [address] [place] [address], [address], [facility] 8 16:28:42 Asthma 206642565 Active 2019 GABY RIVERA [address] [place] [address], [address], [facility] 0 16:07:22 COVID-19 127025672 Active 2019 0 [facility] 09:42:40 Pulmonary embolism 89706143 Active 2019 GABY RIVERA [address] [place] [address], [address], [facility] 0 12:30:54 Deep venous thrombosi s of lower extremity 635211384 Active 2020 GABY RIVERA [address] [place] [address], [address], [facility] 1 13:43:49 Edema of lower extremity 569795515 Active 2021 GABY RIVERA [address] [place] [address], [address], [facility] 2 11:05:34 Cough 98699584 Active 2021 GABY RIVERA [address] [place] [address], [address], [facility] 2 11:05:41 Fatigue 90120452 Active 2021 GABY RIVERA [address] [place] [address], [address], [facility] 2 11:07:20 Hyperlipi demia 02379006 Active 2021 GABY RIVERA [address] [place] [address], [address], [facility] 2 11:08:59 Decreased renal function 79289467 Active 2021 GABY RIVERA [address] [place] [address], [address], [facility] 2 09:16:57 Obese 194965709 Active 2021 GABY RIVERA [address] [place] [address], [address], [facility] 2 16:38:38 Insulin resistanc e 868431420 Active 2022 GABY RIVERA [address] [place] [address], [address], [facility] 3 14:32:13 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 2022 GABY RIVERA [address] [place] [address], [address], [facility] 3 14:32:31 Deep venous thrombosi s of lower extremity 788902139 Active 2022 GABY RIVERA [address] [place] [address], [address], [facility] 3 09:45:00 Periphera l venous insuffici ency 74377291 Active 2022 GABY RIVERA [address] [place] [address], [address], [facility] 3 09:45:47 Periphera l vascular disease 895565026 Active 2022 GABY RIVERA [address] [place], [address], [facility] 3 09:48:00 Swelling of left foot 270833315 Active 2022 GABY RIVERA [address] [place] [address], [address], [facility] 3 15:57:38 Exacerbat ion of intermitt ent asthma 152515361 Active 2022 GABY RIVERA [address] [place] [address], [address], [facility] 3 13:58:25 Insomnia 208153575 Active 2022 GABY RIVERA [address] [place] [address], [address], [facility] 3 13:59:25 Anxiety 58763960 Active 2022 GABY RIVERA [address] [place] [address], [address], [facility] 3 12:14:37 Morbid obesity 056454021 Active 2022 GABY RIVERA [address] [place] [address], [address], [facility] 3 12:16:13 Female hirsutism 90504984 Active 2023 GABY RIVERA [address] [place] [address], [address], [facility] 4 16:44:21 Achilles tendiniti s 57222479 Active 2023 GABY RIVERA [address] [place] [address], [address], [facility] 4 17:02:00 Pain of right knee joint 501182659349 100 Active 2023 GABY RIVERA [address] [place], [address], [facility] 4 11:48:13 Obesity 173186702 Active 2023 GABY RIVERA [address] [place], [address], [facility] 4 11:56:54 Acute pain of joint of knee 659903439503 104 Active 2023 GABY RIVERA [address] [place] [address], [address], [facility] 4 09:22:24 Acute tear of medial meniscus of right knee 016569593349 92669 Active 2023 GABY RIVERA [address] [place] [address], [address], [facility] 4 15:15:44 Acute bronchiti s 12563639 Active 2023 GABY RIVERA [address] [place] [address], [address], [facility] 4 09:35:10 Impaired fasting glycemia 291499717 Active 2024 GABY RIVERA [address] [place] [address], [address], [facility] 5 10:06:08 Increased thirst 931723369 Active 2024 GABY RIVERA [address] [place] [address], [address], [facility] 5 10:06:30 Menopause Active 2024 GABY RIVERA [address] [place] [address], [address], [facility] 5 10:09:07 Problem Notes None recorded. Procedures Surgical History None recorded. Imaging Results Imaging Date Name Status LastModified by Organiz ation Details LastModified Time 09/23/2023 XR, knee, 3 view completed rtba [facility] [address] [facility], [place], [address], 09/25/2023 10:13:53 09/23/2023 XR, knee, 3 [facility] [address] [facility] [address], [place], [address], 09/30/2023 10:40:27 10/21/2023 MRI, knee, w/o contrast completed [email or web address] [facility] [address], [place], [address], 10/22/2023 15:14:41 Procedure Notes None recorded. Medical Equipment None Reported. Allergies Allergen ID Allergen Name Allergen Category Reaction Reaction Severity Criticality Documentation Date Start Date Code Code System Note Provider Name and Address Organization Details Recorded Time 2401 morphine medicatio n itching mild Not available 11/20/2017 7052 RxNorm Lakeshia Garcia, FLOYD, S [address] [place], [address], [facility] 8 16:16:06 Medications Name Sig Start Date [...] Not Available Not Available Not Available ciprofloxa vsaile 500 mg tablet TAKE 1 TABLET BY [...] EVERY 24 HOURS FOR 7 DAYS AT [facility] 05/16 completed Not Available Not Available [...] and Address Organization Details Last Updated DateTime 3 152.4 cm 54.7 kg/m2 924777. 86 g 78 /min 96 % 96 % 142 mm[Hg] 81 mm[Hg] Alea Massey [facility] 3 11:32:18 Date Recorded Body height Body mass index (BMI) Body weight Heart rate Oxygen saturation Oxygen saturation in Arterial blood by Pulse oximetry Systolic blood pressure Diastolic blood pressure Provider Name and Address Organization Details Last Updated DateTime 4 152.4 cm 54.7 kg/m2 649125. 86 g 74 /min 97 % 97 % 110 mm[Hg] 80 mm[Hg] Lara Moreland [facility] 4 16:20:14 Date Recorded Body height Body mass index (BMI) Body weight Heart rate Oxygen saturation Oxygen saturation in Arterial blood by Pulse oximetry Systolic blood pressure Diastolic blood pressure Provider Name and Address Organization Details Last Updated DateTime 4 152.4 cm 56.4 kg/m2 478354. 48 g 79 /min 98 % 98 % 122 mm[Hg] 84 mm[Hg] Farzana Mendez [facility] 4 11:40:50 Date Recorded Body height Body mass index (BMI) Body weight Heart rate Oxygen saturation Oxygen saturation in Arterial blood by Pulse oximetry Systolic blood pressure Diastolic blood pressure Provider Name and Address Organization Details Last Updated DateTime 5 152.4 cm 56.1 kg/m2 675392. 01 g 78 /min 96 % 96 % 118 mm[Hg] 70 mm[Hg] Lara Moreland [facility] 5 10:02:02 Social History Question Answer Notes LastModified by Organizat ion Details LastModified Time Tobacco Smoking Status Never Smoker Not Available [employer] 12/15/2019 03:36:24 What Is Your Level Of Alcohol Consumption? Occasional [id number] Information not available 12/15/2019 What Is Your Level Of Caffeine Consumption? Occasional 1 Cup Coffee Per Day [id number] Information not available 12/15/2019 What Was The Date Of Your Most Recent Tobacco Screening? 04/17/2024 [email or web address] Information not available 04/17/2024 Do You Or Have You Ever Used Any Other Forms Of Tobacco Or Nicotine? No [email or web address] Information not available 01/16/2023 Sex: Unknown Functional Status Question Answer Note LastModified by Organizat ion Details LastModified Time What is your exercise level? Occasional [id number] Information not available 12/15/2019 Mental Status None recorded. Family History Nothing Reported. Medical History No medical history recorded. Gynecological History Statement/Question Response Date of LMP 10/05/2018 Obstetrics History GPAL:G 0 P 0 0 0 0 Immunizations Vaccine Type Date Status Note Provider Nam e and Address Organization Details Recorded Time COVID-19, mRNA, LNP-S, PF, 30 mcg/0.3 mL dose 1 completed Leah marquez [facility] 08/02/2020 09:48:05 COVID-19, mRNA, LNP-S, PF, 30 mcg/0.3 mL dose 1 completed Leah Bowens [facility] 08/02/2020 09:48:10 pneumococcal polysaccharide PPV23 0 completed Leah Bowens [facility] 08/02/2020 09:48:23 Past Encounters Encounter ID Performer Location Encounter Start Date Encounter Closed Date Diagnosis/Indication Diagnosis SNOMED-CT Code Diagnosis ICD10 Code Diagnosis Note [id number] Lakeshia Garcia NP, S [facility] [address] [facility] [address] 11/20/2017 16:01:46 11/20/2017 16:38:37 Acute bronchitis 91187674 J20.9 Anxiety 09858850 F41.9 Discussed Insomnia 201031535 G47.0 0 tried melatonin, try benadryl Migraine 95033953 G43.90 9 refill imitrex [id number] Frank Orellana DO [facility] [address] [facility],[place] [address] 10/07/2018 11:55:01 10/07/2018 12:45:21 Adult health examination 838895388 Z00.00 [id number] GABY RIVERA [facility] [address] [facility], [place] [address] 05/25/2019 11:46:31 05/25/2019 12:46:18 Acute bronchitis 48745075 J20.9 based on patient's symptoms, possibly an acute bronchitis vs a walking pna in the setting of an asthma exacerbati on more inclined to believe a bronchitis will treat the patient empiricall y given the fact I could not see her in office to assess her lungs the patient has also been using her inhaler TID which is a drastic increase from when she was rarely, if at all using it if the patient starts having worsening symptoms including fever, increased sob and cough she is instructed to call us the patient agrees and understand s Asthma 311933177 J45.90 9 as above Acute exac erbation of asthma 401204463 J45.901 as above [id number] GABY RIVERA [facility] [address] [facility],[place] [address] 10/21/2019 15:39:11 10/21/2019 16:22:20 Migraine 47060072 G43.909 may have migrainous vertigo based on symptoms Adult [facility] th examination 918700111 Z00.00 BP is good will fu on FSH level patient may be going through menopause, or perimenopa usal Menopausal flushing 1984 29672 N95.1 will check FSH [id number] GABY RIVERA [facility] [address] [facility],[place] [address] 12/29/2019 16:03:10 12/29/2019 16:23:02 Acute exacerbation of asthma 809885716 J45.901 increase of her asthma, cough, wheezing with symptoms has been COVID tested, waiting on results until they are back will treat like asthma exacerbati on/bronchi tis Cough 14821240 R05 will give something for cough, which keeps her up at night Acute bronchitis 2864906 2 J20.9 based on patient's symptoms, possibly an acute bronchitis vs a walking pna in the setting of an asthma exacerbati on more inclined to believe a bronchitis will treat the patient empiricall y given the fact I could not see her in office to assess her lungs the patient has also been using her inhaler TID which is a drastic increase from when she was rarely, if at all using it if the patient starts having worsening symptoms including fever, increased sob and cough she is instructed to call us the patient agrees and understand s waiting on COVID results [id number] GABY RIVERA [facility] [address] [facility],[place] [address] 01/18/2020 08:58:38 01/18/2020 16:48:08 COVID-19 526404815 U07.1 positive at recheck on admittance in hospital the patient reports she was not rechecked on d/c not given any instructio n about quarantini ng when d/c would have her avoid going out until symptoms resolve Cramp in lower limb 4499 47758 R25.2 r/o DVT given COVID diagnosis Cough 77062935 R05 dry cough, uses inhaler as needed Dyspnea 604858446 R06.00 when active, not at rest [id number] GABY RIVERA [facility] [address] [facility], [address] [place] [address] 01/20/2020 14:33:46 01/22/2020 11:50:37 COVID-19 120632664 U07.1 sent to ER Deep venou s thrombosis of lower extremity 812782222 I82.409 sent to ER for r/o PE Pneumonia 684167313 J18. 9 pna on XR [id number] GABY RIVERA [facility] [address] [facility], [address] [employer] [place] [address] 02/02/2020 08:11:13 02/02/2020 16:03:42 Pulmonary embolism 85965716 I26.99 bilateral PE on appropriat e medication s will fu in a month Deep venou s thrombosis of lower extremity 657791932 I82.409 on xarelto, instructed how to take and how long for will continue on for the next 6 mo at 20 mg qd COVID-19 057130221 U07.1 stable Pneumonia 713978763 J18. 9 resolved [id number] GABY RIVERA [facility] [address] [facility], [place] [address] 03/04/2020 08:42:27 03/04/2020 11:56:52 Deep venous thrombosis of lower extremity 448703113 I82.409 on xarelto, instructed how to take and how long for will continue on for the next 6 mo, at which point will fu to see how she is doing and rescan her to see if the clot has fully dissolved patient agrees to the plan Pulmonary embolism 77756 003 I26.99 stable on current medication , symptoms have resolved and patient is feeling signficant ly better no interventi on needed at this time Asthma 807416480 J45.90 9 stable as per patient, no acute exacerbati ons no interventi ons needed at this time COVID-19 135458549 U07.1 will get retested today and see if still technical ly positive, but she has no symptoms and is not been exposed since so has a resolved infection at this point in time [id number] Frank Orellana, [facility] [address] [facility],[address] 7 08/05/2020 14:54:20 08/05/2020 15:41:36 Sleep apnea 52562307 G47.30 Fatigue 89609472 R53.83 Pulmonary embolism 58239 003 I26.99 xarelto but is coming up to the endbut we will be diligent in watching for any signs of DVT [id number] GABY RIVERA [facility] [address] [facility], [place] [address] 08/30/2020 13:58:26 08/30/2020 15:03:36 Edema of lower extremity 181589980 R60.0 will fu with echo and lasix dose due to PE Pulmonary embolism 82832 003 I26.99 michawill check US echo from baseline back in January to see if there are any changes [id number] GABY RIVERA [facility] [address] [facility] [address] 01/17/2021 14:09:50 01/17/2021 15:00:39 Active or passive immunization 174472231 Z23 stable Adult heal th examination 455823696 Z00.00 BP is excellent todaydown 20 pounds Fatigue 16894199 R53.83 will recheck iron panel and TSH for fatigue Screening for malignant neoplasm of colon 472653021 Z12.11 [place]oscop y [id number] [facility] [address] [facility],[place] [address] 08/16/2021 10:21:00 08/16/2021 11:23:47 Cough 55379732 R05.1 dry cough, hx of PElast echo was through cardio sept Edema of l ower extremity 591211925 R60.0 will fu with echo and lasix dose due to PE Fatigue 26875461 R53.83 will recheck iron panel and TSH for fatigue Hyperlipidemia 12962765 E78.2 would like recheck with the rest of her labs [id number] GABY RIVERA [facility] [address] [facility] [address],[place] [address] 02/21/2022 09:26:22 02/21/2022 15:16:45 Cough 08159667 R05.1 will start on levofloxac in and fu with CXR COVID-19 714038943 U07.1 had it a month ago Insulin resistance 33057 5000 E88.81 will check insulin as well as her other labs Perimenopa usal disorder 142714936 N95.1 will set up with additional testing [id number] GABY RIVERA [facility] [address] [facility] [address],[place] [address] 05/16/2022 09:12:27 05/16/2022 10:19:38 Pulmonary embolism 19917286 I26.99 stablelast echo 09/01 Deep venou s thrombosis of lower extremity 128282939 I82.409 on xarelto, instructed how to take and how long for will continue on for the next 6 mo, at which point will fu to see how she is doing and rescan her to see if the clot has fully dissolved patient agrees to the plan Peripheral venous insufficiency 23206091 I87.2 agreed to US duplex venous Peripheral vascular disease 873210427 I73.89 agreed to US arterial duplexPVI vs PAD Perimenopa usal disorder 466737667 N95.1 [id number] GABY RIVERA [facility] [address] [facility] [address] [facility] [address] 01/01/2023 10:04:32 01/02/2023 08:47:02 COVID-19 082612711 U07.1 resolved Asthma 941494737 J45.20 acute exacerbati on Exacerbati on of intermittent asthma 867717485 J45.21 will set up with cipro, cough syrup and new inhaler Insomnia 949191275 G47.0 9 related to coughtussi nex works the [employer] send in order for her Cough 79889255 R05.1 will start on levofloxac in and fu with CXR [id number] GABY RIVERA [facility] [address] [facility] [address],[place] [address] 01/16/2023 11:14:00 01/16/2023 13:22:41 Adult health examination 888333363 Z00.00 BP is excellent todaydown 20 pounds Anxiety 42317289 F41.1 [facility] the [facility] obesity 487229587 E66.01 will trial her on phentermin e [id number] GABY RIVERA [facility] [address] [facility] [address] [address] 08/07/2023 16:15:33 08/07/2023 17:04:00 Cough 42230643 R05.1 will start on levofloxac in and fu with CXR Hyperlipidemia 93204757 E78.49 would like recheck with the rest of her labs Insulin resistance 55277 5000 E88.818 will set up with recheck levels Female hirsutism 2021019 9 L68.0 will recheck levels Anxiety 77770292 F41.1 will start on bupropion XL 150 mg once per day Achilles tendinitis 1165 4001 M76.61 start on meloxicam for bilateral ankle and tendon pain [id number] GABY RIVERA [facility] [address] [facility],[place] [address] 09/23/2023 11:30:50 09/23/2023 13:45:47 Obesity 370523101 E66.01 stable Deep venou s thrombosis of lower extremity 279020961 I82.409 I82.412 resolved Pain of ri ght knee joint 0831991600 09230 M25.561 will f/u with blood work and XR of his knee (R)? meniscus tear vs gout vs tick born illness [id number] GABY RIVERA [facility] [address] [facility] [address],Michell [address] [facility] [place] [address] 04/17/2024 09:53:13 04/17/2024 10:28:16 Impaired fasting glycemia 780202379 R73.01 set up with lab work Increased thirst 5477067 03 R63.1 set up with lab work Thyroid di sorder screening 913635053 Z13.29 would like it screened prior to starting injections Menopause 796321382 N95. 1 alt medication for menopausal symptoms Screening for cardiovascular system disease 586838450 Z13.6 needs recheck Morbid obesity 835207198 E66.01 wants to start her wegovy Deep venou s thrombosis of lower extremity 319297449 I82.412 resolved, caution with possible HRT Health Concerns Section Related Observation LastModified by Organization Detai ls LastModified Time None Recorded Concern Status LastModified by Organization Details LastModified Time None Recorded Advance Directives Directive None Recorded Payers Encounter Date Sequence Insurance Name Policy Number Policy Jean Covered Member ID Jean Member ID Guarantor Name 01/01/2023 1 [place] [id number] Lisha Galpin [id number] Lisha Galpin 01/16/2023 1 [place] [id number] Lisha Galpin [id number] Lisha Galpin 08/07/2023 1 [place] [id number] Lisha Galpin [id number] Lisha Galpin 09/23/2023 1 [place] [id number] Lisha Galpin [id number] Lisha Galpin 04/17/2024 1 [place] [id number] Lisha Galpin [id number] Lisha Galpin Notes Date Note Type Note Provider Name a nd Address Organization Details Recorded Time 3 text/html c/o asthma exacerbation, bronchitis telemed phone callpt consents to phone call the patient reports new onset cough, chest tightness, and insomniathe patient has h/x of pneumonia and PEdeclined XR for nowwill treatstart on cipro, needs refill of her inhaler, and tussinex will monitor patient progresshas fu in january will call if her symptoms worsen GABY RIVERA [address] [place], [address], [facility] 01/01/2023 14:07:29 3 text/html Annual WellnessReported bypatient.Diet and Nutrition:diet is high in salt;diet is high in fat, low in fiber;high caloric intake;high carbohydrate meals;low calcium intake Fracture Risk:no history of fractures; no recent explained fracture; no sudden unexplained fractures; no previous musculoskeletal injuries Physical Activity:exercises on a regular basis; recent increase in physical activity; good physical condition Additional Lifestyle Factors:no tobacco use; no alcohol intake; stopped drinking alcohol Depression Risk:never feels sad, empty, or tearful; no loss of interest in activities; no significant changes in weight; no sleep disturbances or insomnia; no agitation; no loss of energy; no feelings of worthlessness or guilt; no thoughts of suicide; no history of depression; no history of mood disorders Hearing:no loss of hearing Vision:no vision problems GABY RIVERA [address] [place], [address], [facility] 01/16/2023 12:22:36 4 text/html c/o cough and wheezing the patient reports constant dry cough with wheezingthe patient reports that she is having dry coughing hacking fitsthe patient does not have any other symptomsno fever, no chills, no sobagreed to start medrol and cough syrup otherwise doing well start tumeric supplements also starting her on buproprion for the anxiety GABY RIVERA [address] [place], [address], [facility] 08/07/2023 17:02:45 4 text/html c/o right knee pain the patient has pain in the medial side of her knee and anterior compartment; started this morninghad some discomfort last night but could barely walk on it this morningunlikely DVT (given h/x) no redness or no swelling or no warmth pain is sharp and worse with walking and going up stairsno known injury or traumathe patient has not other cause that she can think of the acute onset pain Hya's negativewill set up with lab work and XRs to determine cause of pain GABY RIVERA [address] [place], [address], [facility] 09/23/2023 11:58:39 5 text/html f/u medication check IFG: the [...] avoid any complications, contraindications GABY RIVERA [address] [place], [address], [facility] 04/17/2024 10:28:15 OBGyn Episode No OBEpisode recorded.
[2024-04-17 13:36] LABS: MANUAL DIFF FLAG NO
[2024-04-17 13:44] LABS: Basophils Percent Auto 0.8 % (0-2); Eosinophils Absolute Auto 0.2 X10*3/uL (0.0-0.4); Eosinophils Percent Auto 3.6 % (0-4); Hematocrit 42.9 % (37.0-47.0); Hemoglobin 13.7 g/dl (12.0-16.0); Imm Gran Abs Auto 0.01 X10*3/uL (0.00-0.03); Imm Gran Pct Auto 0.2 % (0.0-0.4); Lymphocytes Absolute Auto 1.3 X10*3/uL (1.2-4.9); Lymphocytes Percent Auto 26.3 % (20-40); Mean Corpuscular HGB Conc 31.9 g/dl (31.0-35.0); Mean Corpuscular Volume 81.4 fL (80.0-98.0); Mean Platelet Volume 12.2 fL (9.4-12.3); Monocytes Absolute Auto 0.4 X10*3/uL (0.1-1.2); Neutrophils Absolute Auto 2.9 x10*3/uL (2.0-8.3); Neutrophils Percent Auto 60.1 % (45-73); Platelet Count 238 X10*3/uL (160-400); Red Blood Count 5.27 X10*6/uL (4.20-5.50); Red Cell Distribution Width 14.7 % (11.0-16.0); White Blood Count 4.8 X10*3/uL (4.8-10.8)
[2024-04-17 14:08] LABS: Estimated Average Glucose 120 mg/dL; Hemoglobin A1c % 5.8 % (<6.0)
[2024-04-17 14:15] LABS: Alanine Aminotransferase 22 U/L (0-31); Albumin Level 4.2 g/dL (3.5-5.0); Alkaline Phosphatase 79 U/L (39-117); Amylase 42 U/L (28-100); Anion Gap 10 (12-20); Aspartate Amino Transferase 22 U/L (5-31); Bilirubin Total 0.3 mg/dL (0.0-1.0); Blood Urea Nitrogen 18 mg/dL (9-16); Calcium 9.1 mg/dL (8.4-10.2); Carbon Dioxide 26 mmol/L (22-29); Chloride 108 mmol/L (96-108); Cholesterol 220 mg/dL (<200); Estimated Glomerular Filt Rate > 60; Glucose Random 107 mg/dL (60-115); HDL Cholesterol 46 mg/dL (>40); LDL Cholesterol Calculated 136 mg/dL (<100); Lipase 30 U/L (8-78); Potassium 4.3 mmol/L (3.3-5.1); Sodium 140 mmol/L (135-145); Thyroid Stimulating Hormone 1.31 uIU/mL (0.32-4.0); Total Protein 7.2 g/dL (6.5-8.0); Triglycerides 194 mg/dL (<150)
[2024-04-17 14:36] LABS: T4 Thyroxine 5.5 ug/dL (4.5-12.0)
[2024-04-18 17:43] LABS: Follicle Stimulating Hormone 45.9 mIU/mL
[2024-04-25 05:44] LABS: Estradiol Ultra Sensitive 13 pg/mL
[2024-04-29 00:14] LABS: Progesterone <0.1 ng/mL
== END 2024-04-17 10:35 | disposition home or self-care (01) ==
LOC: HO.MANLDS 10:34
PROVIDERS: Visit Provider Physician Assistant
DX: R73.01 Impaired fasting glucose (principal); Z13.29 Encounter for screening for other suspected endocrine disorder; N95.1 Menopausal and female climacteric states; Z13.6 Encounter for screening for cardiovascular disorders
CPT/HCPCS: 36415; 80053; 80061; 82150; 82670; 83001; 83002; 83036; 83690; 84144; 84436; 84443; 85025

== ENCOUNTER 2024-08-19 08:57 | Outpatient (REF) | payer BC, SELFPAY ==
--- OUTSIDE RECORDS SUMMARY | 2024-08-19 09:12 | XMS_ITS | Data Portability ---
Author Organization [facility], Telehealth Patient Home Address [address] [place] [address] Assessment No assessment recorded. Plan of Treatment Reminders Order Date Submit Date Provider Last Modified By Organization Details Last Modified Time Details Appointments FOLLOW UP 15 2024 09:15A GABY DINERO Not available Not available Not available ANNUAL EXAM 2024 01:30P GABY DINERO Not available Not available Not available Lab CBC w/ auto diff 2024 025 [facility], [address] [place] [address], [id number], 08/10/2024 11:47:06 ESR (erythroc yte sedimenta tion rate), blood 2024 025 [facility], [address] [place] [address], [id number], 08/10/2024 11:47:05 C reactive protein, QN, serum or plasma 2024 025 [facility], [address] [place] [address], [address], 08/10/2024 11:47:06 TSH + free T4, serum 2024 025 [facility], [address] [place] [address], [address], 08/10/2024 11:47:06 urinalysi s complete, reflex culture 2024 025 [facility], [address] [place] [address], [address], 08/10/2024 11:47:06 CMP, serum or plasma 2024 025 [facility], [address] [place] [address], 15[address], 04/20/2024 12:23:39 hemoglobi n A1c, QN, blood 2024 025 [facility], [address] [place] [address], [address], 04/17/2024 10:18:38 CBC w/ auto diff 2024 025 [facility], [address] [place] [address], [address], 04/17/2024 10:18:38 amylase + lipase, serum 2024 025 [facility], [address] [place] [address], [address], 04/17/2024 10:18:38 lh + FSH, serum 2024 025 [facility], [address] [place] [address], [address], 04/17/2024 10:18:38 progester one, serum 2024 025 [facility], [address] [place] [address], 129[address], 04/29/2024 13:00:38 estradiol , serum 2024 025 [facility], [address] [place] [address], 04[address], 04/27/2024 12:15:44 lipid panel, blood 2024 025 [facility], [address] [place] [address], 7[address], 04/17/2024 10:18:38 TSH + free T4, serum 2024 025 [facility], [address] [place] [address], [address], 04/17/2024 10:18:38 lyme disease igg+igm, serum, reflex western blot 2023 024 [facility], [address] [place] [address], [address], 09/25/2023 11:24:33 anaplasma phagocyto philum (hga/hge) igg+igm Ab, serum 2023 024 [facility], [address] [place] [address], 880[address], 09/30/2023 11:28:20 uric acid, serum or plasma 2023 024 [facility], [address] [place] [address], 820[address], 09/23/2023 11:57:53 CMP, serum or plasma 2023 024 [facility], [address] [place] [address], 011[address], 09/24/2023 11:33:18 CBC w/ auto diff 2023 024 [facility], [address] [place] [address], 9[address], 09/24/2023 11:33:18 Referral gynecolog ist referral 2024 025 vinay [facility] [employer], [address] [place] [address], [address], 08/11/2024 09:31:09 Procedures None recorded. Surgeries None recorded. Imaging XR, knee, 3 view 2023 024 [facility], [address] [place], [address], 09/24/2023 16:18:20 Medication Orders Wegovy 1.7 mg/0.75 mL subcutane ous pen injector 2024 025 [facility] [address] [place], [address], 08/10/2024 11:48:06 sumatript an 100 mg tablet 2024 025 [facility] [address] [place], [address], 08/10/2024 11:39:26 meclizine 25 mg tablet 2024 025 [facility] [address] [place], [address], 08/10/2024 11:39:25 tramadol 50 mg tablet 2024 025 [facility] [address] [place], [address], 08/10/2024 11:49:42 Wegovy 0.5 mg/0.5 mL subcutane ous pen injector 2024 025 [email or web address] [facility] [address] [place], [address], 07/17/2024 10:11:12 paroxetin e 10 mg tablet 2024 025 [facility] [address] [place], [address], 04/17/2024 10:17:20 Patient TargetsNo targets recorded. Patient InstructionsNo instructions recorded. Reason for Referral News Anchor Referral for Po stmenopausal bleeding had been having limited spotting or nothing, developed sig bleeding for a week Referring Physician: Razia Hernandes, Internal Medicine, Encounter Date: 08/10/2024 Results Created Date Observation Date Name Description Value Unit Range Abnormal Flag Note LastModifiedBy Organization Detail LastModifiedTime 09/24/19 24 09/23/2023 XR, knee, 3 view No observ ation record ed. [facility] [address] [facility], [place], [address], 09/25/2023 10:13:53 09/30/19 24 09/23/2023 XR, knee, 3 view No observ ation record ed. [facility] [address] [facility] [address], [place], [address], 09/30/2023 10:40:27 10/22/19 24 10/21/2023 MRI, knee, w/o contr ast No observ ation record ed. [facility] [place] [address] [facility] [address], [place], [address], 10/22/2023 15:14:41 07/04/19 25 07/03/2024 MAMMO , scree charanjit, digit al, bilat eral No observ ation record ed. [email or web address] Not Available 07/03 14:22:52 Result Notes None recorded. Problems Name Problem SNOMED Code Status Onset Date Resolution Date Notes Provider Name and Address Organization Details Recorded Time Migraine 58225230 Active 2017 Lakeshia Garcia NP, [address] [place], [address], [facility] 8 16:28:42 Asthma 251274123 Active 2019 GABY RIVERA [address] [place], [address], [facility] 0 16:07:22 COVID-19 918724362 Active 2019 0 Brenda marquez, [facility] 0 09:42:40 Pulmonary embolism 27941424 Active 2019 GABY RIVERA [address] [place], [address], [facility] 0 12:30:54 Deep venous thrombosi s of lower extremity 774788525 Active 2020 GABY RIVERA [address] [place], [address], [facility] 1 13:43:49 Edema of lower extremity 712147454 Active 2021 GABY RIVERA [address] [place] [address], [address], [facility] 2 11:05:34 Cough 01688258 Active 2021 GABY RIVERA [address] [place] [address], [address], [facility] 2 11:05:41 Fatigue 72828628 Active 2021 GABY RIVERA [address] [place] [address], [address], [facility] 2 11:07:20 Hyperlipi demia 31210114 Active 2021 GABY RIVERA [address] [place] [address], [address], [facility] 2 11:08:59 Decreased renal function 97310802 Active 2021 GABY RIVERA [address] [place] [address], [address], [facility] 2 09:16:57 Obese 748093598 Active 2021 GABY RIVERA [address] [place] [address], [address], [facility] 2 16:38:38 Insulin resistanc e 452993834 Active 2022 GABY RIVERA [address] [place] [address], [address], [facility] 3 14:32:13 Perimenop ausal disorder 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 Active 2022 GABY RIVERA [address] [place], [address], [facility] 3 14:32:31 Deep venous thrombosi s of lower extremity 668324407 Active 2022 GABY RIVERA [address] [place], [address], [facility] 3 09:45:00 Periphera l venous insuffici ency 12797877 Active 2022 GABY RIVERA [address] [place] [address], [address], [facility] 3 09:45:47 Periphera l vascular disease 852006831 Active 2022 GABY RIVERA [address] [place] [address], [address], [facility] 3 09:48:00 Swelling of left foot 049537250 Active 2022 GABY RIVERA [address] [place] [address], [address], [facility] 3 15:57:38 Exacerbat ion of intermitt ent asthma 192913428 Active 2022 GABY RIVERA [address] [place] [address], [address], [facility] 3 13:58:25 Insomnia 018019424 Active 2022 GABY RIVERA [address] [place] [address], [address], [facility] 3 13:59:25 Anxiety 41644004 Active 2022 GABY RIVERA [address] [place], [address], [facility] 3 12:14:37 Morbid obesity 410700561 Active 2022 GABY RIVERA [address] [place] [address], [address], [facility] 3 12:16:13 Female hirsutism 13614021 Active 2023 GABY RIVERA [address] [place] [address], [address], [facility] 4 16:44:21 Achilles tendiniti s 53891103 Active 2023 GABY RIVERA [address] [place] [address], [address], [facility] 4 17:02:00 Pain of right knee joint 020332988426 100 Active 2023 GABY RIVERA [address] [place] [address], [address], [facility] 5 15:10:28 Obesity 393720899 Active 2023 GABY RIVERA [address] [place] [address], [address], [facility] 4 11:56:54 Acute pain of joint of knee 704208981779 104 Active 2023 GABY RIVERA [address] [place] [address], [address], [facility] 4 09:22:24 Acute tear of medial meniscus of right knee 169942202486 41853 Active 2023 GABY RIVERA [address] [place] [address], [address], [facility] 4 15:15:44 Acute bronchiti s 25331343 Active 2023 GABY RIVERA [address] [place] [address], [address], [facility] 4 09:35:10 Impaired fasting glycemia 963583461 Active 2024 GABY RIVERA [address] [place] [address], [address], [facility] 5 10:06:08 Increased thirst 992627928 Active 2024 GABY RIVERA [address] [place] [address], [address], [facility] 5 10:06:30 Menopause Active 2024 GABY RIVERA [address] [place] [address], [address], [facility] 5 10:09:07 Pain of knee region 4792013746 Active 2024 GABY RIVERA [address] [place] [address], [address], [facility] 5 15:10:39 Postmenop ausal bleeding 27593584 Active 2024 GABY RIVERA [address] [place] [address], [address], [facility] 5 11:41:52 Cervical lymphaden opathy 230302290 Active 2024 GABY RIVERA [address] [place] [address], [address], [facility] 5 11:44:35 Dysuria 18484789 Active 2024 GABY RIVERA [address] [place] [address], [address], [facility] 5 11:45:03 Problem Notes None recorded. Medical Equipment None Reported. Allergies Allergen ID Allergen Name Allergen Category Reaction Reaction Severity Criticality Documentation Date Start Date Code Code System Note Provider Name and Address Organization Details Recorded Time 2401 morphine medicatio n itching mild Not available 11/20/2017 7052 RxNorm Lakeshia Garcia NP, [address] [place], [address], [facility] 8 16:16:06 Medications [...] TAKE 1 TABLET BY MOUTH EVERY DAY 08/10 completed Not Available Not Available Not Available prednisone 10 mg tablet TAKE 5 TABLETS BY MOUTH X 2 DAYS, 4 TABS X 2 DAYS, 3 TABS X 2 DAYS, 2 TABS X 2 DAYS, 1 TAB X 2 DAYS 04/17 completed Not Available Not Available Not Available paroxetine 10 mg tablet TAKE 1 TABLET BY MOUTH EVERY DAY DIRECTED active Not Available Not Available No t Available azithromyc in 250 mg tablet TAKE 2 TABLETS BY MOUTH TODAY, THEN TAKE 1 TABLET DAILY FOR 4 DAYS DIRECTED 04/17 completed Not Available Not Available Not Available benzonatat e 200 mg capsule TAKE 1 CAPSULE BY MOUTH THREE TIMES A DAY NEEDED FOR 14 DAYS 04/17 completed Not Available Not Available Not Available sumatripta n 100 mg tablet take 1 tablet by mouth once prn 2024 active Not Available Not Available Not Avai lable meloxicam 15 mg tablet TAKE 1 TABLET BY MOUTH DAILY WITH MEAL FOR 30 DAYS active Not Available Not [...] Available Not Available tramadol 50 mg tablet Take 1 tablet every 6 hours by oral route as needed for 7 days. 2024 active Not Available Not Available Not Avai lable meclizine 25 mg tablet one tablet prn for dizzines s/migrai ne 2024 active Not Available Not Available Not [...] completed Not Available Not Available Not Available Tussin DM 10 mg-100 mg/5 mL oral liquid Take 10 mL every 4 hours by oral route. 05/16 completed Not Available Not Available Not Available furosemide 20 mg tablet TAKE 1 TABLET BY MOUTH EVERY DAY 05/16 completed Not Available Not Available Not Available levofloxac in 500 mg tablet TAKE 1 TABLET BY MOUTH EVERY 24 HOURS FOR 7 DAYS AT [facility] 05/16 completed Not Available Not Available [...] TAKE 1 TABLET BY MOUTH EVERY DAY Y 04/17 completed Not Available Not Available Not Available Vitamin D3 2000 units active Not [...] Not Available Not Available Not Available Wegovy 1.7 mg/0.75 mL subcutaneo us pen injector Inject 1.7 mg every week by subcutan eous route as needed for 30 days. 2024 active Not Available Not Available Not Avai lable Wegovy 1 mg/0.5 mL subcutaneo us pen injector INJECT 1 MG SUBCUTAN EOUSLY EVERY WEEK FOR 30 DAYS. 08/10 completed Not Available Not Available Not Available Wegovy 0.25 mg/0.5 mL subcutaneo us pen injector Inject 0.25 mg every week by subcutan eous route as directed for 30 days. 07/17 completed Not Available Not Available Not Available Wegovy 0.5 mg/0.5 mL subcutaneo us pen injector INJECT 0.5 MG SUBCUTAN EOUSLY WEEKLY DIRECTED 07/17 completed Not Available Not Available Not Available Vitals Date Recorded Body height Body mass index (BMI) Body weight Heart rate Oxygen saturation Oxygen saturation in Arterial blood by Pulse oximetry Systolic And Diastolic Provider Name and Address Organization Details Last Updated DateTime 5 152.4 cm 56.1 kg/m2 899556. 01 g 78 /min 96 % 96 % 118/70 mm[Hg] [facility] 5 10:02:02 Date Recorded Body height Body mass index (BMI) Body weight Heart rate Oxygen saturation Oxygen saturation in Arterial blood by Pulse oximetry Systolic And Diastolic Provider Name and Address Organization Details Last Updated DateTime 5 152.4 cm 54.9 kg/m2 367372. 46 g 84 /min 97 % 97 % 140/74 mm[Hg] Lara Padgettmond [facility] 5 15:47:47 Date Recorded Body height Heart rate Oxygen saturation Oxygen saturation in Arterial blood by Pulse oximetry Systolic And Diastolic Provider Name and Address Organization Details Last Updated DateTime 5 152.4 cm 81 /min 98 % 98 % 142/92 mm[Hg] Farzana Mendez [facility] 5 14:56:00 Date Recorded Body height Body mass index (BMI) Body weight Oxygen saturation Oxygen saturation in Arterial blood by Pulse oximetry Heart rate Systolic And Diastolic Provider Name and Address Organization Details Last Updated DateTime 5 152.4 cm 50.8 kg/m2 587196. 02 g 96 % 96 % 64 /min 124/72 mm[Hg] Yesi Lori [facility] 5 11:23:59 Date Recorded Body height Body mass index (BMI) Body weight Heart rate Oxygen saturation Oxygen saturation in Arterial blood by Pulse oximetry Systolic And Diastolic Provider Name and Address Organization Details Last Updated DateTime 4 152.4 cm 56.4 kg/m2 437798. 48 g 79 /min 98 % 98 % 122/84 mm[Hg] Farzana Mendez [facility] 4 11:40:50 Social History Question Answer Notes LastModified by FSI Details LastModified Time Tobacco Smoking Status Never Smoker Not Available [facility] 12/15/2019 03:36:24 What Is Your Level Of Caffeine Consumption? Occasional 1 Cup Coffee Per Day [id number] Information not available 12/15/2019 What Was The Date Of Your Most Recent Tobacco Screening? 08/10/2024 [email or web address] Information not available 08/10/2024 Sex: Unknown Functional Status Question Answer Note LastModified by FSI Details LastModified Time Do you or have you ever used any other forms of tobacco or nicotine? No [email or web address] Information not available 01/16/2023 What is your level of alcohol consumption? Occasional [id number] Information not available 12/15/2019 What is your exercise level? Occasional [id number] Information not available 12/15/2019 Mental Status None recorded. Family History Nothing Reported. Medical History No medical history recorded. Gynecological History Statement/Question Response Date of LMP 10/05/2018 Obstetrics History GPAL:G 0 P 0 0 0 0 Immunizations Vaccine Type Date Status Note Provider Atif kowalski and Address Organization Details Recorded Time Tdap 5 completed Farzana Mendez [facility] 05/25/2024 10:12:36 COVID-19, mRNA, LNP-S, PF, 30 mcg/0.3 mL dose 1 completed Leah Bowens [facility] 08/02/2020 09:48:05 COVID-19, mRNA, LNP-S, PF, 30 mcg/0.3 mL dose 1 completed Leah Bowens [facility] 08/02/2020 09:48:10 pneumococcal polysaccharide PPV23 0 completed Leah Bowens [facility] 08/02/2020 09:48:23 Past Encounters Encounter ID Performer Location Encounter Start Date Encounter Closed Date Diagnosis/Indication Diagnosis SNOMED-CT Code Diagnosis ICD10 Code Diagnosis Note [id number] Frank Orellana [facility] [address] [place] [address], [place] [address] 11/20/2017 16:01:46 11/20/2017 16:38:37 Acute bronchitis 79954784 J20.9 Anxiety 16260667 F41.9 Discussed Insomnia 696658315 G47.0 0 tried melatonin, try benadryl Migraine 08270880 G43.90 9 refill imitrex [id number] Frank Orellana [facility] [address] [facility], [place] [address] 10/07/2018 11:55:01 10/07/2018 12:45:21 Adult health examination 878736635 Z00.00 [id number] Frank Orellana [facility] [address] [facility], [place] [address] 05/25/2019 11:46:31 05/25/2019 12:46:18 Acute bronchitis 74348965 J20.9 based on patient's symptoms, possibly an [...] the patient agrees and understand s Asthma 496164355 J45.90 9 as above Acute exac erbation of asthma 993123995 J45.901 as above [id number] [facility] [address] [facility] [facility] [place] [address] 10/21/2019 15:39:11 10/21/2019 16:22:20 Migraine 50827387 G43.909 may have migrainous vertigo based on symptoms Adult [facility] th examination 419227231 Z00.00 BP is good will fu on FSH level patient may be going through menopause, or perimenopa usal Menopausal flushing 1984 09307 N95.1 will check FSH [id number] [facility] Medicine [address] [facility] [address] [facility] [place] [address] 12/29/2019 16:03:10 12/29/2019 16:23:02 Acute exacerbation of asthma 183828953 J45.901 increase of her asthma, cough, wheezing with symptoms has been COVID tested, waiting on results until they are back will treat like asthma exacerbati on/bronchi tis Cough 56997548 R05 will give something for cough, which keeps her up at night Acute bronchitis 6435082 2 J20.9 based on patient's symptoms, possibly [...] and understand s waiting on COVID results [id number] [facility] Medicine [address] [facility],[place] [address] 01/18/2020 08:58:38 01/18/2020 16:48:08 COVID-19 702402929 U07.1 positive at recheck on admittance in hospital the patient reports she was not rechecked on d/c not given any instructio n about quarantini ng when d/c would have her avoid going out until symptoms resolve Cramp in lower limb 4499 15751 R25.2 r/o DVT given COVID diagnosis Cough 75023769 R05 dry cough, uses inhaler as needed Dyspnea 214765937 R06.00 when active, not at rest [id number] Frank Orellana [facility] [address] [facility], [place] [address] 01/20/2020 14:33:46 01/22/2020 11:50:37 COVID-19 869944632 U07.1 sent to ER Deep venou s thrombosis of lower extremity 402842025 I82.409 sent to ER for r/o PE Pneumonia 182929793 J18. 9 pna on XR [id number] Frank Orellana [facility] [address] [facility], [address] [address] 02/02/2020 08:11:13 02/02/2020 16:03:42 Pulmonary embolism 05557124 I26.99 bilateral PE on appropriat e medication s will fu in a month Deep venou s thrombosis of lower extremity 401131692 I82.409 on xarelto, instructed how to take and how long for will continue on for the next 6 mo at 20 mg qd COVID-19 305399309 U07.1 stable Pneumonia 507173971 J18. 9 resolved [id number] Frank Orellana [facility] [address] [facility], [address] [place] [address] 03/04/2020 08:42:27 03/04/2020 11:56:52 Deep venous thrombosis of lower extremity 009577820 I82.409 on xarelto, instructed how to take and how long for will continue on for the next 6 mo, at which point will fu to see how she is doing and rescan her to see if the clot has fully dissolved patient agrees to the plan Pulmonary embolism 66274 003 I26.99 stable on current medication , symptoms have resolved and patient is feeling signficant ly better no interventi on needed at this time Asthma 121204963 J45.90 9 stable as per patient, no acute exacerbati ons no interventi ons needed at this time COVID-19 821762255 U07.1 will get retested today and see if still technical ly positive, but she has no symptoms and is not been exposed since so has a resolved infection at this point in time [id number] Frank Orellana [facility] [address] [facility] [address] 08/05/2020 14:54:20 08/05/2020 15:41:36 Sleep apnea 57056249 G47.30 Fatigue 35271518 R53.83 Pulmonary embolism 52841 003 I26.99 xarelto but is coming up to the endbut we will be diligent in watching for any signs of DVT [id number] Frank Orellana [facility] [address] [facility] [address] 08/30/2020 13:58:26 08/30/2020 15:03:36 Edema of lower extremity 709274438 R60.0 will fu with echo and lasix dose due to PE Pulmonary embolism 45229 003 I26.99 stablewill check US echo from baseline back in January to see if there are any changes [id number] Frank Orellana [facility] [address] [facility] [address] 01/17/2021 14:09:50 01/17/2021 15:00:39 Active or passive immunization 236424551 Z23 stable Adult heal th examination 339020765 Z00.00 BP is excellent todaydown 20 pounds Fatigue 97948110 R53.83 will recheck iron panel and TSH for fatigue Screening for malignant neoplasm of colon 713829785 Z12.11 [place]oscop y [id number] Frank Orlelana [facility] [address] [facility],[place] [address] 08/16/2021 10:21:00 08/16/2021 11:23:47 Cough 48904237 R05.1 dry cough, hx of PElast echo was through cardio sept Edema of l ower extremity 901109384 R60.0 will fu with echo and lasix dose due to PE Fatigue 73641335 R53.83 will recheck iron panel and TSH for fatigue Hyperlipidemia 40987457 E78.2 would like recheck with the rest of her labs [id number] [facility] Internal [facility] [address] [facility],[place] [address] 02/21/2022 09:26:22 02/21/2022 15:16:45 Cough 16074446 R05.1 will start on levofloxac in and fu with CXR COVID-19 040010797 U07.1 had it a month ago Insulin resistance 57815 5000 E88.81 will check insulin as well as her other labs Perimenopa usal disorder 228824681 N95.1 will set up with additional testing [id number] [facility] Internal Medicine 179 [facility],[place] [address] 05/16/2022 09:12:27 05/16/2022 10:19:38 Pulmonary embolism 47125149 I26.99 stablelast echo 09/01 Deep venou s thrombosis of lower extremity 298409931 I82.409 on xarelto, instructed how to take and how long for will continue on for the next 6 mo, at which point will fu to see how she is doing and rescan her to see if the clot has fully dissolved patient agrees to the plan Peripheral venous insufficiency 30325110 I87.2 agreed to US duplex venous Peripheral vascular disease 561801717 I73.89 agreed to US arterial duplexPVI vs PAD Perimenopa usal disorder 844576853 N95.1 [id number] [facility] Internal Medicine [address] [facility],[place] [address] 01/01/2023 10:04:32 01/02/2023 08:47:02 COVID-19 902237874 U07.1 resolved Asthma 381711078 J45.20 acute exacerbati on Exacerbati on of intermittent asthma 400154385 J45.21 will set up with cipro, cough syrup and new inhaler Insomnia 227539034 G47.0 9 related to coughtussi nex works the yarelis send in order for her Cough 77376052 R05.1 will start on levofloxac in and fu with CXR [id number] [facility] Internal Medicine [address] [facility],[place] [place] [address] 01/16/2023 11:14:00 01/16/2023 13:22:41 Adult health examination 690950563 Z00.00 BP is excellent todaydown 20 pounds Anxiety 17072223 F41.1 [facility] the [facility] Morbid obesity 138670153 E66.01 will trial her on phentermin e [id number] [facility] Internal Medicine 179 [facility],[employer] [address] 08/07/2023 16:15:33 08/07/2023 17:04:00 Cough 08233760 R05.1 will start on levofloxac in and fu with CXR Hyperlipidemia 28875035 E78.49 would like recheck with the rest of her labs Insulin resistance 09070 5000 E88.818 will set up with recheck levels Female hirsutism 6502474 9 L68.0 will recheck levels Anxiety 11703335 F41.1 will start on bupropion XL 150 mg once per day Achilles tendinitis 1165 4001 M76.61 start on meloxicam for bilateral ankle and tendon pain [id number] [facility] Internal [facility] 179 [facility],[place] [address] 09/23/2023 11:30:50 09/23/2023 13:45:47 Obesity 593743228 E66.01 stable Deep venou s thrombosis of lower extremity 684147056 I82.409 I82.412 resolved Pain of ri ght knee joint 7983922187 65823 M25.561 will f/u with blood work and XR of his knee (R)? meniscus tear vs gout vs tick born illness [id number] [facility] Internal Medicine [address] [facility], [place] [address] 04/17/2024 09:53:13 04/17/2024 13:39:44 Impaired fasting glycemia 976565720 R73.01 set up with lab work Increased thirst 1240597 03 R63.1 set up with lab work Thyroid di sorder screening 855348811 Z13.29 would like it screened prior to starting injections Menopause 096775083 N95. 1 alt medication for menopausal symptoms Screening for cardiovascular system disease 742913370 Z13.6 needs recheck Morbid obesity 148036758 E66.01 wants to start her wegovy Deep venou s thrombosis of lower extremity 353386761 I82.412 resolved, caution with possible HRT [id number] [facility] Internal [facility] 179 [facility] [place] [address] 05/15/2024 15:42:27 05/15/2024 16:07:15 Body mass index 40+ - severely obese 636065492 Z68.43 will increase to the 0.5 mg for the next 4 weeks Asthma 553628572 J45.20 stable [id number] [facility] Internal [facility] [address] [facility], [place] [address] 06/19/2024 14:49:31 06/19/2024 15:17:46 Pain of right knee joint 8440349144 65834 M25.561 cont as needed otc pain medsadd glucosamin e or chondrotin Pain of knee region 1003 644357 M25.561 given number to call ortho [id number] [facility] Internal Medicine [address] [facility], ite [facility] [place] [address] 08/10/2024 11:15:41 08/10/2024 12:08:07 Depression screening 011694971 Z13.31 negative Migraine 55141148 G43.90 9 may have migrainous vertigo based on symptoms Postmenopa usal bleeding 45647029 N95.0 will have her fu with her gynnew referral placed Cervical lymphadenopathy 775746895 R59.0 will set up with screening for thyroid vs reactive LN (from allergies) Dysuria 28563874 R30.0 will set up with urine Body mass index 40+ - severely obese 577020761 Z68.43 will increase to the 0.5 mg for the next 4 weeks Pain of ri ght knee joint 4949023023 35295 M25.561 cont as needed otc pain medsadd glucosamin e or chondrotin Health Concerns Section Related Observation LastModified by Organization Detai ls LastModified Time None Recorded Concern Status LastModified by Organization Details LastModified Time None Recorded Advance Directives Directive None Recorded Payers Insurance Date Sequence Insurance Name Policy Number Policy Jean Covered Member ID Jean Member ID Guarantor Name 08/07/2024 1 LEAH (PPO) [id number] Lisha Abel [id number] Lisha Roman Notes Date Note Type Note Provider Name a nd Address Organization Details Recorded Time 4 text/html c/o right knee pain the [...] can think of the acute onset pain Hay's negativewill set up with lab work and XRs to determine cause of pain GABY RIVERA [address] [place] [address], [place], [address], [facility]3][facility] 09/23/2023 11:58:39 5 text/html f/u [...] avoid any complications, contraindications GABY RIVERA [address] [place], [address], [facility] Internal [facility] 04/17/2024 10:28:15 5 text/html f/u wegovy the patient reports that she is doing good on the injectiondenies any significant side effects with the medication the patient reports that her scale this morning showed 277 lbs which is probably more accurate than our reading this afternoonthe patient reports she is doing well on it with consistently doing it the patient agreed to going up to the 0.5 mg for the next dosingpatient agrees asthma is good GABY RIVERA [address] [place], [address], [facility] Internal Medicine 05/15/2024 16:05:51 5 text/html c/o right knee pain the patient is having worsening right knee painprevious MRI showed posterior horn meniscus tearrecommended consult with ortho, referral was placed in Oct, never called to make appt, today is the first day she has followed up about this issue recommended continued NSAID as needed with APAP for breakthrough painwill have her reach out to their office for f/u apptpossible PT and cortisone shot with f/u if no improvement for surgical consult GABY RIVERA [address] [place], [address], [facility] Internal Medicine 06/19/2024 15:13:40 5 text/html f/u recheck wegovy the patient is doing wellthe patient is down from 288.8 lbs to 260 lbs in office (257 lbs at home) the patient is dryer and having more headaches (probably related to the pollen) patient had a menstrual cycle, heavy bleeding for about a weekno clotsthe patient 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
[2024-08-19 11:27] LABS: Appearance Urine Turbid; Glucose Urine UA Negative (Negative); PH 6.0 (5.0-9.0); Specific Gravity - Urine 1.025 (1.005-1.025); UMIC TRIGGER UACC YES
[2024-08-19 11:31] LABS: UACC Culture Trigger YES
[2024-08-19 11:31] LABS: MANUAL DIFF FLAG NO
[2024-08-19 11:39] LABS: Hematocrit 43.9 % (37.0-47.0); Hemoglobin 14.0 g/dl (12.0-16.0); Imm Gran Abs Auto 0.01 X10*3/uL (0.00-0.03); Imm Gran Pct Auto 0.2 % (0.0-0.4); Lymphocytes Absolute Auto 1.1 X10*3/uL (1.2-4.9); Mean Corpuscular HGB Conc 31.9 g/dl (31.0-35.0); Mean Corpuscular Hemoglobin 26.0 pg (27.0-33.0); Mean Corpuscular Volume 81.6 fL (80.0-98.0); NRBC Abs Auto 0.000 X10*3/uL (0.0-0.012); NRBC Pct Auto 0.0 /100WBC (0.0-0.2); Platelet Count 235 X10*3/uL (160-400); Red Blood Count 5.38 X10*6/uL (4.20-5.50); White Blood Count 4.3 X10*3/uL (4.8-10.8)
== END 2024-08-19 08:58 | disposition home or self-care (01) ==
LOC: HO.WFDLDS 08:57
PROVIDERS: Visit Provider Physician Assistant
DX: R59.0 Localized enlarged lymph nodes (principal); R30.0 Dysuria
CPT/HCPCS: 36415; 81001; 84443; 85025; 85652; 86140; 87086